=== PATIENT | male | born 1945 | race Caucasian/White ===

== ENCOUNTER 2019-08-10 06:51 | Outpatient (CLI) | payer MEDICARE, BC ==
[2019-08-10 09:57] LABS: #Eosinphils 0.1 thou/uL (0.0-0.7); #Lymphocytes 2.1 thou/uL (1.20-3.40); #Monocytes 0.7 thou/uL (0.11-0.59); #Neutrophils 2.6 thou/uL (1.40-6.50); %Basophils 0.7 % (0.0-1.0); %Lymphocytes 37.6 % (21.0-51.0); %Monocytes 12.9 % (0.0-10.0); %Neutrophils 46.8 % (42.0-75.0); Hemoglobin 16.2 g/dL (14.0-18.0); Mean Corpuscular HGB CONC 33.5 g/dL (32.0-36.0); Mean Corpuscular Hemoglobin 30.8 pg (27.0-31.0); Mean Corpuscular Volume 91.9 fL (78.0-98.0); Mean Platelet Volume 7.9 fL (7.4-10.4); Platelet Count 227 thou/uL (130-400); RBC Distribution Width 11.6 % (11.5-14.5); Red Blood Cell (RBC) Count 5.28 mill/uL (4.70-6.10); White Blood Cell (WBC) Count 5.6 thou/uL (4.8-10.8)
[2019-08-10 10:20] LABS: Anion Gap 11 mmol/L (10-20); BUN (Urea Nitrogen) 19 mg/dL (8.4-25.7); Calc. Creatinine Clearance 0 mL/min (70-130); Calcium 9.8 mg/dL (7.8-10.44); Carbon Dioxide 31 mmol/L (23-31); Chloride 105 mmol/L (98-107); Estimated GFR-MDRD 61; Glucose 73 mg/dL (83-110); Potassium 4.2 mmol/L (3.5-5.1); Sodium 143 mmol/L (136-145)
== END 2019-08-10 06:52 | disposition home or self-care (01) ==
LOC: LABBT 06:51
PROVIDERS: ATTEND Surgery
DX: Z01.812 Encounter for preprocedural laboratory examination (principal); K40.90 Unilateral inguinal hernia, without obstruction or gangrene, not specified as recurrent
CPT/HCPCS: 80048; 85025

== ENCOUNTER 2019-08-14 09:59 | Day surgery (SDC) | payer MEDICARE, BC ==
[2019-08-10 08:47] VITALS: BMI 24.0
[2019-08-14] MEDS ORDERED: Promethazine HCl 25 MG/ML VIAL IM PRN (10:58)
[2019-08-14] MEDS ORDERED: Ondansetron HCl/PF 4 MG/2 ML Vial IVP PRN (10:58)
[2019-08-14] MEDS ORDERED: Promethazine HCl 25 MG/ML VIAL SLOW IVP PRN (10:58)
[2019-08-14] MEDS ORDERED: PROPOFOL 200 MG/20 ML VIAL ONE (11:00)
[2019-08-14] MEDS ORDERED: Glycopyrrolate 0.2 MG/ML 5 ML SYRINGE ONE (11:00)
[2019-08-14] MEDS ORDERED: Dexamethasone 20 MG/5 ML VIAL ONE (11:00)
[2019-08-14] MEDS ORDERED: ePHEDrine/0.9% NaCl/PF SYRINGE 50 mg/10 ml ONE (11:00)
[2019-08-14] MEDS ORDERED: Rocuronium Bromide 10 MG/ML (10ML VIAL) ONE (11:00)
[2019-08-14] MEDS ORDERED: Lidocaine 1% PF 5 ML VIAL ONE (11:00)
[2019-08-14] MEDS ORDERED: Fentanyl 100 MCG/2 ML VIAL ONE (11:48)
[2019-08-14] MEDS ORDERED: Lidocaine 2% Jelly 5 ML TUBE ONE (12:00)
[2019-08-14] MEDS ORDERED: Bupivacaine 0.25% HCL 30 ML VIAL ONE (12:03)
--- NOTE | 2019-08-14 17:59 | EKG ---
Test Reason : PREOP Blood Pressure : / mmHG Vent. Rate : 062 BPM Atrial Rate : 062 BPM P-R Int : 166 ms QRS Dur : 080 ms QT Int : 398 ms P-R-T Axes : 066 047 051 degrees QTc Int : 403 ms Normal sinus rhythm Normal ECG When compared with ECG of 15-SEP-2012 09:01, No significant change was found Confirmed by Suzette MENDOZA ([id number]) on 08/14/2019 5:59:11 PM Referred By: [email or web address] Confirmed By:Suzette MENDOZA
--- NOTE | 2019-08-17 09:41 | OP ---
DATE OF PROCEDURE: 08/14/2019 PREOPERATIVE DIAGNOSIS: Bilateral inguinal hernia. POSTOPERATIVE DIAGNOSIS: Bilateral inguinal hernia. PROCEDURE PERFORMED: Da Esthela laparoscopic bilateral inguinal hernia repair with mesh 3DMax large. ANESTHESIA: General. ESTIMATED BLOOD LOSS: Minimal. COMPLICATIONS: None. SPECIMEN: None. FINDINGS: Bilateral inguinal hernia. TECHNIQUE: Patient was taken to the operating room and placed supine on the table. After general anesthetic was obtained, a Eckert was placed. The abdomen was prepped and draped in a sterile fashion. A curved incision was made above the umbilicus, cautery dissected down to and scored the fascia. Abdominal cavity entered bluntly using a Selam clamp. An 11 mm balloon trocar was placed and high-flow pneumoperitoneum obtained. A right and left robot 8 mm assist trocars were placed under direct visualization and all ports were docked to the robot. Surgeon goes to the console. The peritoneum is opened on in the bilateral groin. The preperitoneal space was dissected down to pubic tubercle medially, anterior superior iliac crest laterally. Shelving edge of inguinal ligament was fully exposed. The bilateral indirect hernias were dissected out of the inguinal canal and back up high onto the peritoneum. On the right side, there was a direct hernia that was dissected back up high onto the peritoneum. A 3DMax large mesh was brought in the sterile field, placed in the abdomen and M-labeled medial aspect was placed over the pubic tubercle on both sides. The mesh was laid out laterally on both sides to cover the femoral direct and indirect areas. The mesh was bilaterally sewn to using 2-0 Vicryl to pubic tubercle medially to the posterior fascia laterally. The bilateral peritoneum was approximated using 3-0 Stratafix. All needles were removed from the abdomen and accounted for. All port sites were infiltrated using local anesthetic. All ports were removed under camera visualization without bleeding. Pneumoperitoneum was let down. PDS was used to close the fascial defect below the umbilicus. All incisions were irrigated and closed using 4-0 Monocryl and Dermabond. Patient was sent to Recovery in stable condition. All instrument counts, needle counts, and lap counts were correct. Job ID: [id number]
== END 2019-08-14 15:35 | disposition home or self-care (01) ==
LOC: SDC 09:59
PROVIDERS: ATTEND Surgery
PROC: 0YUA4JZ Supplement Bilateral Inguinal Region with Synthetic Substitute, Percutaneous Endoscopic Approach (ICD-10-PCS; principal; 2019-08-14)
DX: K40.20 Bilateral inguinal hernia, without obstruction or gangrene, not specified as recurrent (principal); G89.29 Other chronic pain; M54.9 Dorsalgia, unspecified; Z79.899 Other long term (current) drug therapy
CPT/HCPCS: 49650; 93005; C1781; 93010; J0690; J1100; J2001; J2704; J3010; S0020